=== PATIENT | male | born 1935 | race Two or more races ===

== ENCOUNTER 2021-12-09 10:19 | Emergency (ER) | payer OTHER ==
[~2021-12-09] VITALS: Ht 167.6 cm; Wt 60.8 kg
[2021-12-09] MEDS ORDERED: ATIVAN1 M1 PO (10:28)
[2021-12-09] MEDS ORDERED: OMEPRAZOLE-BIC1 EAC1 PO (10:29)
== END 2021-12-09 14:07 | disposition home or self-care (01) ==
LOC: ER 10:19
DX: R13.10 Dysphagia, unspecified (principal); E86.0 Dehydration

== ENCOUNTER 2021-12-19 09:40 | Outpatient (CLI) | payer OTHER ==
[~2021-12-19 09:40] MED LIST: ATIVAN1 M1 PO; OMEPRAZOLE-BIC1 EAC1 PO
== END 2021-12-19 09:45 | disposition home or self-care (01) ==
LOC: RX STUDY 09:40
PROVIDERS: ATTEND Internal Medicine Gastroenterology
DX: R13.10 Dysphagia, unspecified (principal); K29.00 Acute gastritis without bleeding; K20.90 Esophagitis, unspecified without bleeding